=== PATIENT | female | born 1990 | race African-American/Black ===

== ENCOUNTER 2023-07-10 20:29 | Emergency (ER) | payer OTHER ==
[~2023-07-10] VITALS: Ht 157.5 cm; Wt 97.2 kg
[2023-07-10 21:21] VITALS: BP 120/70; PULSE 93; RESP 16; TEMP 98; O2SAT 100
== END 2023-07-11 00:52 | disposition left against medical advice (07) ==
LOC: ER 20:29
DX: Z53.21 Procedure and treatment not carried out due to patient leaving prior to being seen by health care provider (principal)
CPT/HCPCS: 99281